=== PATIENT | female | born 1995 | race Caucasian/White ===

== ENCOUNTER 2017-03-31 10:33 | Emergency (ER) | payer MEDICAID ==
[~2017-03-31] VITALS: Ht 165.1 cm; Wt 78.7 kg
[2017-03-31] MEDS ORDERED: ONDANSETRON ODT 8 MG PO ONE (11:29)
[2017-03-31] MEDS ORDERED: ONDANSETRON ODT 4 MG ONE (11:36)
[2017-03-31 11:39] VITALS: BP 116/69
[2017-03-31 11:44] LABS: HEMOGLOBIN 15.2 g/dL (11.7-16.4); WHITE BLOOD COUNT 5.9 x10^3/uL (4.5-13.2)
[2017-03-31 11:59] LABS: BLOOD UREA NITROGEN 13 mg/dL (7-18)
== END 2017-03-31 12:57 | disposition home or self-care (01) ==
LOC: ED 11:02
DX: L23.89 Allergic contact dermatitis due to other agents (principal); T50.B95A Adverse effect of other viral vaccines, initial encounter; N39.0 Urinary tract infection, site not specified; Z88.0 Allergy status to penicillin; Y92.89 Other specified places as the place of occurrence of the external cause
CPT/HCPCS: 36415; 80048; 81001; 82040; 84703; 85025; 87077; 87086; 87186; 99284; Q0162